=== PATIENT | male | born 1950 | race Caucasian/White ===

== ENCOUNTER 2020-09-30 11:06 | Inpatient (IN) | payer OTHER ==
[~2020-09-30] VITALS: Ht 177.8 cm; Wt 81.4 kg
[~2020-09-30 11:06] MED LIST: ATOR20 PO; ATOR40TA PO; Aspirin EC81 MG PO; LISINOPRIL-HCT1 EACH PO; METFORMIN HCL1000 M5 PO; NAPR500 PO; OXYACE5T PO
[2020-09-30 12:14] LABS: Mean Corpuscular HGB 26.8 pg (26.0-34.0); Mean Corpuscular HGB Conc 29.8 g/dL (31.5-36.5); Mean Corpuscular Volume 90 fL (80-100); Mean Platelet Volume 10.6 fL (9.1-12.4); NRBC ABSOLUTE 0.03 K/mm3 (0.00-0.02); NRBC Auto 0.7 /100 WBC (0.0-0.2); Platelet Count 981 K/mm3 (150-400); RDW Coefficient Variation 18.9 % (11.7-14.2); RDW Standard Deviation 59.3 fL (35.1-46.3); Red Blood Cell Count 1.79 M/mm3 (4.30-5.90); White Blood Cell Count 4.51 K/mm3 (4.00-11.30)
[2020-09-30 12:33] LABS: Alanine Aminotransfer (ALT/SGP 47 U/L (12-78); Albumin, Blood 2.7 g/dL (3.4-5.0); Albumin/Globulin Ratio 0.6 (0.8-1.8); Alk Phos 107 U/L (50-136); Anion Gap 9 mmol/L (6-16); Aspartate Aminotrans (AST/SGOT 35 U/L (12-37); Bilirubin, Total 0.3 mg/dL (0.1-1.0); Blood Urea Nitrogen 43 mg/dL (8-24); CO2, Blood 21 mmol/L (21-32); Calcium, Blood 8.7 mg/dL (8.5-10.1); Chloride, Blood 114 mmol/L (98-108); Creatinine, Blood 1.05 mg/dL (0.60-1.20); Globulin, Blood 4.7 g/dL (2.2-4.0); Glomerular Filtration Rate >60 (60-); Glucose, Blood 134 mg/dL (70-99); Hematocrit 16.1 % (37.0-53.0); Hemoglobin 4.8 g/dL (13.5-17.5); Potassium, Blood 4.3 mmol/L (3.5-5.5); Sodium, Blood 144 mmol/L (136-145); Total Protein, Blood 7.4 g/dL (6.4-8.2)
[2020-09-30 12:57] LABS: BAND PERCENT MAN 9 % (0-8); BASOPHILS ABSOLUTE MAN 0.09 K/mm3 (0.00-0.23); BASOPHILS PERCENT MAN 2 % (0-2); EOSINOPHILS PERCENT MAN 0 % (0-6); LYMPHOCYTES ABSOLUTE MAN 0.81 K/mm3 (0.84-5.20); METAMYELOCYTE ABSOLUTE MAN 0.45 K/mm3 (0.00-0.00); METAMYELOCYTE PERCENT MAN 10 % (0-0); MONOCYTES PERCENT MAN 0 % (4-13); MYELOCYTE ABSOLUTE MAN 0.09 K/mm3 (0.00-0.00); MYELOCYTE PERCENT MAN 2 % (0-0); NEUTROPHILS ABSOLUTE MAN 3.06 K/mm3 (1.96-9.15); SEG NEUTROPHILS PERCENT MAN 59 % (41-73); TOTAL CELLS COUNTED 100
[2020-09-30 12:58] LABS: LYMPHOCYTES PERCENT MAN 18 % (21-46)
[2020-09-30 14:01] LABS: IMMATURE RETIC FRACTION 21.9 % (2.3-16.0); RETICULOCYTE ABSOLUTE 0.0335 M/mm3 (0.0200-0.1100); RETICULOCYTE COUNT PERCENT 1.85 % (0.50-2.50)
[2020-09-30 14:23] LABS: Percent Saturation 37.7 % (20.0-50.0)
--- NOTE | 2020-09-30 15:54 | NUR ---
Telephone report from Malcolm Robles at this time. States that the pt will probably leave AMA. States pt's sister was here and that there was a "weird dynamic". States pt is saying that he really does not want to stay in the hospital. Noted 2 provider consultations in the orders, one for Dr. Lopez and another for Dr. Owusu. Jessica has evidently been contacted by the ordering provider, and Francoise consult states, "RN called and spoke with Dr. Owusu". Asked Malcolm to please clarify with RN who did the telephoning what the determinination with regard to that consultation. Anticipate pt arrival to PCU room 8 shortly.
--- NOTE | 2020-09-30 16:27 | NUR ---
Spoke with Dr Wills and Hopitalist Malcolm. Discussed case and concerns. Pt confused and critical low HGB. Possible undiagnosed form of dementia. Pt has history of leaving AMA and non compliance with medications. Concerns that Pt may leave AMA again. ED Portfolio Director Camelia also involved in case. Continued conversation regarding options and concerns. Called and spoke with Andres Bird from Ethics. Andres will consult with hospitalist Conrad. Palliative Care will F/U as needed.
--- NOTE | 2020-09-30 17:27 | NUR ---
MEDICATION LIST RECONCILLED WITH [facility], PT STATES THAT HE DOES TAKE MEFORMIN, ATORVASTATIN AND LISINOPRIL/HCTZ AT THE DOSAGES LISTED. PT STATES HE DOES NOT TAKE ASPIRIN. PT STATES HE DOES NOT TAKE ANY OTHER MEDICATIONS.
--- NOTE | 2020-09-30 17:48 | NUR ---
Pt arrived from the ED via stretcher. Alert, awake, and appropriate in conversation. Cooperative, calm, non anxious. Still wearing his clothes from home, which are soiled in urine and stool. Pt given a complete bed bath, linen change, and assessment completed. Vital signs are stable, and 1 unit of PRBCs is infusing at time of arrival.
[2020-09-30 18:21] LABS: Influenza A, PCR NEGATIVE (NEGATIVE); Influenza B, PCR NEGATIVE (NEGATIVE); Resp Syncytial Virus, PCR NEGATIVE (NEGATIVE); SARS-Cov-2 (COVID-19) PCR, MMC NEGATIVE (NEGATIVE)
--- NOTE | 2020-09-30 18:58 | NUR ---
Phone call from daughter in law Marisol Up, of pt's son Mike Up, expressing her concerns about the pt's living situation. She states that he has been evicted from his trailer and has no place to live. States that he has been on drugs in the past, and that he has some dementia also. She states that the son Mike found feces all over his bed, which was brown in color. Marisol states that she was the one who called APS due to his condition. States that she has been calling to set up the pt with medicaid but wasn't able to talk with anyone today. Her personal cell phone number is [phone], but she will be at work tomorrow. Explained to both her and son Mike the plan of care for the patient at this time, and that interdisciplinary effort is being made to plan for a safe discharge for the patient. Mike is listed as next of kin for the pt. Verified that [phone] is the best number to reach him at over the next 2 days.
[2020-09-30 22:19] LABS: Hematocrit 17.8 % (37.0-53.0); Hemoglobin 5.8 g/dL (13.5-17.5)
--- NOTE | 2020-10-01 05:52 | NUR ---
SHIFT SUMMARY PT ALERT TO SELF AND LOCATION. UNSURE OF REASON ADMITTED TO HOSPITAL AND YEAR. PT INGESTED BOWEL PREP PER PHYSICIAN ORDERS, SEE EMAR. PT HAD LIQUID BROWN STOOL. CONSULTED WITH CHARGE, RN AND RECTAL TUBE WAS PLACED D/T PT BEING INCONTINENT OF STOOL AND URINE. CONDOM CATH IN PLACE WELL. HR STABLE. BP STABLE. OXYGEN SATURATION MAINTAINED ABOVE 92% ON RA. PT REPORTS NO CP OR PRESSURE. PT ABLE TO TURN SELF IN BED NEEDED. PT HAD ONE EPISODE OF BLOODY NOSE DURING SHIFT, RESOLVED QUICKLY. PT PULLED IV DURING SHIFT. PT ON CAMERA IN ROOM. BED ALARM IN PLACE FOR SAFETY. WILL CONTINUE TO MONITOR UNTIL REPORT GIVEN TO DAYSHIFT RN.
[2020-10-01 06:46] LABS: Hematocrit 20.8 % (37.0-53.0); Hemoglobin 6.8 g/dL (13.5-17.5)
[2020-10-01 07:01] LABS: International Normalized Ratio 1.18; Prothrombin Time Results 12.5 Sec (9.7-11.5)
[2020-10-01 07:10] LABS: Alanine Aminotransfer (ALT/SGP 58 U/L (12-78); Albumin, Blood 2.4 g/dL (3.4-5.0); Albumin/Globulin Ratio 0.6 (0.8-1.8); Alk Phos 100 U/L (50-136); Anion Gap 7 mmol/L (6-16); Aspartate Aminotrans (AST/SGOT 46 U/L (12-37); Bilirubin, Total 0.6 mg/dL (0.1-1.0); Blood Urea Nitrogen 36 mg/dL (8-24); Bun/Creatinine Ratio 33.3 (12.0-20.0); CO2, Blood 22 mmol/L (21-32); Calcium, Blood 8.7 mg/dL (8.5-10.1); Chloride, Blood 114 mmol/L (98-108); Creatinine, Blood 1.08 mg/dL (0.60-1.20); Globulin, Blood 4.3 g/dL (2.2-4.0); Glomerular Filtration Rate >60 (60-); Glucose, Blood 101 mg/dL (70-99); Magnesium, Blood 2.2 mg/dL (1.6-2.4); Sodium, Blood 143 mmol/L (136-145); Total Protein, Blood 6.7 g/dL (6.4-8.2)
--- NOTE | 2020-10-01 07:34 | NUR ---
Calm, cooperative and opening eyes to conversation. Denies any pain, anxiety, discomfort, nervousness. No tremors noted. Skin warm, pink, dry. ORiented to person, place,but does not know the date nor the year. Asking to use the urinal. States he is in the hospital but does not know why. Vital signs are stable. Condom cath draining clear yellow urine to collection bag. will send urine for ordered tests. Rectal tube in place, draining brown liquid stool.
[2020-10-01 08:44] LABS: Source, Urine Clean Catch
[2020-10-01 08:50] LABS: Appearance, Urine Clear (Clear); Bilirubin, Urine Neg (Neg); Blood, Urine Neg (Neg); Color, Urine Yellow (P-Yellow); Glucose Qualitative, Urine Neg (Neg); Ketones, Urine Neg (Neg); Leukocyte Esterase, Urine Neg (Neg); Nitrite, Urine Neg (Neg); Protein, Urine 1+ (Neg); Specific Gravity, Urine 1.015 (1.003-1.022); Urobilinogen, Urine NORM (Normal)
[2020-10-01 08:59] LABS: U Amphetamine Screen DETECTED
[2020-10-01 09:00] LABS: U Barbituate Screen Not Detected; U Benzodiazapine Screen Not Detected; U Buprenorphine Screen Not Detected; U Cannabinoids Screen DETECTED; U Cocaine Screen Not Detected; U Methadone Screen Not Detected; U Methamphetamine Screen DETECTED; U Opiates Screen Not Detected; U Oxycodone Screen Not Detected; U Phencyclidine Screen Not Detected; U Propoxyphene Screen Not Detected
--- NOTE | 2020-10-01 09:01 | NUR ---
Call from Katie ashley confirming pt NPO status at this time. Informed RN that pt took bowel prep last night per report and completed it, at this time rectal tube is draining liquid brown stool. Urine draining via condom cath, clear yellow.
--- NOTE | 2020-10-01 09:11 | NUR ---
ORetic and lisinopril held due to SBP less than 110 this morning. PT coughing quite a lot after drinking water through a straw when attempting to take his pills. OT here to see the patient.
[2020-10-01 09:12] LABS: Stool Occult Blood Guaiac 1 Pos (Neg)
--- NOTE | 2020-10-01 09:23 | NUR ---
Ethics consult order received and processed. Medical chart notes reviewed, conversations facilitated with yoo stakeholders, and statutory material related to implied or presumed consent laws in cases of incapacitation evaluated. The principal is thought to be compromised neurocognitively and therefore unable to process medical information relevant to treatment, appreciate forseeable consenquences of a decision, or fully engage in the use of reason. In instances of emergency medicine, stabilizing therapies can be provided through the instrumentation of presumed consent in situations where the recipient of such services is incapacitated, as long as those treatments are not contraindicated by a known or accessible advance care planning device or legally enacted health care proxy. In the case of Mr Up, my recommendation is to have psychiatry conduct a cognitive examination to validate the assumption of incapacity for the record. If thoses findings confirm a lack of decisional capacity as clinically suspected, then with the permission of the family, we should retain the principal in the hospital as long as an acute level of service is needed. Additionally we should urge them to file a petition with the court and pursue emergency guardianship to ensure the terminal carman safety and well-being of the principal. Thank you for this consult. Andres Bird Th.D.
--- NOTE | 2020-10-01 10:03 | NUR ---
SET chair alarm off. Dr. Kennedy here to see the patient. Dr. Shane called, apraised of pt's u tox and CIWA score which was 3 due to pt's confusion. New orders received. PT assisted from chair to bed at his request at this time.
--- NOTE | 2020-10-01 11:01 | NUR ---
Pt resting in bed upon arrival. Pt denies pain and dyspnea at this time. Wet non productive cough noted. Pt appears more withdrawn today and only responds to questions with simple one to two word sentences. Reviewed chart and Palliative Care will remain available.
--- NOTE | 2020-10-01 12:35 | NUR ---
10/01/20 1235 Saad Sanders PATIENT DETERMINED TO BE ASA APPROPRIATE FOR PROPOFOL SEDATION PRIOR TO START OF PROCEDURE BY DR. JACOBSON Bite Block Placed 3-LEAD EKG REVIEWED WITH PHYSICIAN PRIOR TO START OF PROCEDURE. Patient to ENDO 2 History, Chart, Medications and Allergies reviewed before start of procedure. MONITOR INTACT WITH CONTINUOUS PULSE OXIMETRY AND INTERMITTENT BP. O2 VIA N/C INTACT THROUGHOUT SEDATION/PROCEDURE.
--- NOTE | 2020-10-01 13:31 | NUR ---
Advised by Saad ROSE that pt is returning to room from endoscopy.
--- NOTE | 2020-10-01 14:01 | NUR ---
Pt returned from endoscopy. Sat up on gurney, stated that he felt "blurry" an dizzy. Transferred to bed using lift sheet instead of having pt stand and transfer. Pericare done for scant soiling of rectal area, and linen changed. Boosted up in bed. Pt requesting food and drink. Per ROSE Nash,the pt can have regular diet which was approved by Dr. Lopez. Pt was provided with food and drink from [facility].
--- NOTE | 2020-10-01 14:56 | NUR ---
Call to Dr. Wilkinson to request update of orders. New order to D/C the protonix gtt and change to oral daily dosing. Regular diet also ordered. Dr. Wilkinson states that from gastrolenterology standpoint the pt can be discharged, but he understands that there are social issues which are being adressed first.
--- NOTE | 2020-10-01 14:58 | NUR ---
Yung tolerating regular diet, drinking diet pepsi and ate a half sandwich.
--- NOTE | 2020-10-01 15:36 | NUR ---
Spiritual care visit conducted. Patient is sitting up in bed and alert. Patient answers in very short sentences but is engaged in the conversation. Patient says "no" to understanding what his medical issues are and to knowing what his medical plan of care is. He also says "no" to having anyone who is supportive of him and to having any spiritual beliefs. Patient stated that he used to be inspired by hunting and fishing and the outdoors. Patient states that his world now is "small and lonely." I normalize patient's experience, and provide therapeutic listening and a calming presence. I will continue to attempt to build therapeutic alliance with patient in order to assist with the emotional/spiritual struggles in his life.
[2020-10-01 15:47] LABS: Hematocrit 23.6 % (37.0-53.0); Hemoglobin 7.7 g/dL (13.5-17.5)
--- NOTE | 2020-10-01 22:41 | NUR ---
PHYSICIAN UPDATED PHYSICIAN UPDATED AFTER SECOND COVID SWAB RESULTED NEGATIVE. ORDERED TO D/C ISOLATION.
[2020-10-02 02:17] LABS: Hematocrit 21.4 % (37.0-53.0); Hemoglobin 7.1 g/dL (13.5-17.5)
--- NOTE | 2020-10-02 05:40 | NUR ---
SHIFT SUMMARY PT SLEPT T/O SHIFT. PT ALERT TO SELF, KNOWS HE IS IN THE HOSPITAL, UNSURE OF YEAR OR WHY HE IS ADMITTED TO THE HOSPITAL. PT INCONTINENT OF URINE AND STOOL. DEPENDS IN PLACE. PT ABLE TO TURN SELF IN BED NEEDED. HR STABLE. BP STABLE. OXYGEN SATURATION ABOVE 92% ON RA. BED ALARM IN PLACE FOR PT SAFETY. NO CP REPORTED. WILL CONTINUE TO MONITOR UNTIL REPORT GIVEN TO DAYSHIFT RN.
[2020-10-02 12:51] LABS: Hematocrit 23.8 % (37.0-53.0); Hemoglobin 7.6 g/dL (13.5-17.5)
--- NOTE | 2020-10-02 17:09 | NUR ---
SHIFT SUMMARY NO ACUTE EVENTS THIS SHIFT, VSS. PATIENT WORKED WITH PT/OT THIS SHIFT, PATIENT TOLERATED WELL, ABLE TO AMBULATE TO BATHROOM AND BACK WITH THERAPY. PATIENT TOLERATED PO INTAKE WELL THIS SHIFT. DENIED PAIN AND NAUSEA/HEADACHE THIS SHIFT, CIWA SCORES 0-2.
--- NOTE | 2020-10-02 17:20 | NUR ---
REPORT GIVEN TO LUCY ROSE ON MEDICAL.
--- NOTE | 2020-10-02 17:39 | NUR ---
Son wanted to complete documents review of advance directives and discussed code status. He will review with his father and and we will complete on monday. Review of POA and assigned decision maker. The had many questions about his anemia and bleeding. Educated on medications and floow up care and what his GI system was doing. Encouraged him to go to GI doctor and oncology so he does not suffer and stays our of hospital. Pt starting to have more appetiete wanted some candy and was looking forward to dinner.
--- NOTE | 2020-10-02 19:22 | NUR ---
AT BASELINE, knew name and that he was in a hospital in [place] but not date or even the month, stated he was here because his brother brought him, denied pain during bsr with noc nurse, call light in reach and explained, demonstrated ability to turn on light, rm air, bed in low position, saline locked, noc nurse has taken responsibility for pt
[2020-10-03 05:03] LABS: Hematocrit 22.5 % (37.0-53.0); Hemoglobin 7.2 g/dL (13.5-17.5); Mean Corpuscular HGB 27.8 pg (26.0-34.0); Mean Corpuscular Volume 87 fL (80-100); Mean Platelet Volume 10.1 fL (9.1-12.4); Platelet Count 729 K/mm3 (150-400); RDW Coefficient Variation 16.4 % (11.7-14.2); RDW Standard Deviation 51.6 fL (35.1-46.3); Red Blood Cell Count 2.59 M/mm3 (4.30-5.90)
[2020-10-03 05:24] LABS: Alanine Aminotransfer (ALT/SGP 69 U/L (12-78); Albumin, Blood 2.1 g/dL (3.4-5.0); Albumin/Globulin Ratio 0.5 (0.8-1.8); Alk Phos 116 U/L (50-136); Anion Gap 8 mmol/L (6-16); Aspartate Aminotrans (AST/SGOT 53 U/L (12-37); Bilirubin, Total 0.3 mg/dL (0.1-1.0); Blood Urea Nitrogen 32 mg/dL (8-24); Bun/Creatinine Ratio 34.4 (12.0-20.0); CO2, Blood 21 mmol/L (21-32); Calcium, Blood 8.3 mg/dL (8.5-10.1); Chloride, Blood 112 mmol/L (98-108); Creatinine, Blood 0.93 mg/dL (0.60-1.20); Globulin, Blood 4.1 g/dL (2.2-4.0); Glomerular Filtration Rate >60 (60-); Glucose, Blood 98 mg/dL (70-99); Potassium, Blood 4.3 mmol/L (3.5-5.5); Sodium, Blood 141 mmol/L (136-145); Total Protein, Blood 6.2 g/dL (6.4-8.2)
[2020-10-03 05:35] LABS: BAND PERCENT MAN 10 % (0-8); BASOPHILS PERCENT MAN 0 % (0-2); EOSINOPHILS PERCENT MAN 0 % (0-6); LYMPHOCYTES ABSOLUTE MAN 0.54 K/mm3 (0.84-5.20); LYMPHOCYTES PERCENT MAN 15 % (21-46); METAMYELOCYTE ABSOLUTE MAN 0.32 K/mm3 (0.00-0.00); METAMYELOCYTE PERCENT MAN 9 % (0-0); MONOCYTES PERCENT MAN 0 % (4-13); MYELOCYTE ABSOLUTE MAN 0.14 K/mm3 (0.00-0.00); MYELOCYTE PERCENT MAN 4 % (0-0); NEUTROPHILS ABSOLUTE MAN 2.59 K/mm3 (1.96-9.15); SEG NEUTROPHILS PERCENT MAN 62 % (41-73); TOTAL CELLS COUNTED 100
--- NOTE | 2020-10-03 06:11 | NUR ---
SHIFT SUMMARY- PT. A&OX2 WITH CONFUSION. NO COMPLAINTS DURING THE NIGHT. ASLEEP MOST OF THE NIGHT, NO APPARENT DISTRESS NOTED. INCONT, ATTENDS IN PLACE. PT. REPOSITIONED FOR COMFORT AND PRN. EDNA ASKEW'Luis, VSS. CALL LIGHT WITHIN REACH, SIDE RAILS UPX2, AND BED ALARM ON FOR SAFETY. WILL CONT TO MONITOR.
--- NOTE | 2020-10-03 10:27 | NUR ---
CHANGED L WRIST IV DRESSING ON 10/03/20.
--- NOTE | 2020-10-03 18:42 | NUR ---
SHIFT SUMMARY PT A/O X2; ORIENTED TO PLACE AND TO HIMSELF. HE IS CONFUSED BUT VERY PLEASANT AND COOPERATIVE. HE GETS UP WITH A 1 PERSON ASSIST TO THE CHAIR AND IS UP IN THE CHAIR FOR MEALS. HE IS INCONT AND HAD MANY INCONT VOIDS DURING THE SHIFT. VSS; WILL REPORT TO GABRIEL RN.
--- NOTE | 2020-10-04 05:40 | NUR ---
SHIFT SUMMARY- PT. SLEPT MOST OF THE NIGHT, NO APPARENT DISTRESS NOTED. A&OX2, OTHERWISE PLEASANTLY CONFUSED. HAD FEVER LAST NIGHT, MEDICATED PER EMAR WITH GOOD EFFECT. NO C/O PAIN OR N/V. PT. HAVING SEVERAL INCONT VOIDS T/O THE NIGHT. ATTENDS IN PLACE. CALL LIGHT WITHIN REACH, SIDE RAILS UPX2, AND BED ALARM ON. WILL CONT TO MONITOR.
[2020-10-04 08:03] LABS: Hematocrit 21.9 % (37.0-53.0); Hemoglobin 6.9 g/dL (13.5-17.5); Mean Corpuscular HGB 27.6 pg (26.0-34.0); Mean Corpuscular HGB Conc 31.5 g/dL (31.5-36.5); Mean Corpuscular Volume 88 fL (80-100); Mean Platelet Volume 10.4 fL (9.1-12.4); NRBC ABSOLUTE 0.02 K/mm3 (0.00-0.02); NRBC Auto 0.6 /100 WBC (0.0-0.2); Platelet Count 455 K/mm3 (150-400); RDW Coefficient Variation 16.5 % (11.7-14.2); RDW Standard Deviation 52.6 fL (35.1-46.3); White Blood Cell Count 3.52 K/mm3 (4.00-11.30)
[2020-10-04 09:04] LABS: BAND PERCENT MAN 3 % (0-8); BASOPHILS ABSOLUTE MAN 0.03 K/mm3 (0.00-0.23); BASOPHILS PERCENT MAN 1 % (0-2); BLASTS PERCENT MAN 2 % (0-0); EOSINOPHILS PERCENT MAN 0 % (0-6); LYMPHOCYTES % ATYPICAL MANUAL 2 % (0-0); LYMPHOCYTES ABSOLUTE MAN 0.59 K/mm3 (0.84-5.20); LYMPHOCYTES PERCENT MAN 15 % (21-46); METAMYELOCYTE ABSOLUTE MAN 0.21 K/mm3 (0.00-0.00); METAMYELOCYTE PERCENT MAN 6 % (0-0); MONOCYTES PERCENT MAN 0 % (4-13); MYELOCYTE ABSOLUTE MAN 0.24 K/mm3 (0.00-0.00); MYELOCYTE PERCENT MAN 7 % (0-0); NEUTROPHILS ABSOLUTE MAN 2.35 K/mm3 (1.96-9.15); SEG NEUTROPHILS PERCENT MAN 64 % (41-73); TOTAL CELLS COUNTED 100
--- NOTE | 2020-10-04 18:18 | NUR ---
SHIFT SUMMARY PT AXO TO SELF AND FOLLOWING DIRECTIONS. CAN NAME CITY BUT COULD NOT RECALL YEAR. VSS THIS SHIFT. 1 UNIT PRBC ADMINITERED PER DR HILL'S ORDER. BEDBOUND, TURN Q2. ATTENDS CHANGED PRN AND AT LEAST Q2. PT DENIES PAIN, SOB AND N/V. BED IN LOW POSITION CALL LIGHT WITHIN REACH.
--- NOTE | 2020-10-05 04:45 | NUR ---
SHIFT SUMMARY PT A/O TO SELF AND HOSPITAL BUT DID NOT KNOW YEAR OR PRESIDENT. HE HAS RESTED IN BED MOST OF THE NIGHT AND HAS DENIED NEEDS. NO ACUTE CHANGES IN ASSESSMENT. HGB UP TO 6.9 AFTER LAST CHECK. PT RECEIVED 1 UNIT OF PRBC DURING DAYSHIFT REPEAT LABS TO BE DONE AGAIN THIS AM. BED IN LOWEST POSITION, CALL LIGHT WITHIN REACH.
[2020-10-05 06:20] LABS: Hematocrit 24.3 % (37.0-53.0); Hemoglobin 7.8 g/dL (13.5-17.5); Mean Corpuscular HGB 28.4 pg (26.0-34.0); Mean Corpuscular HGB Conc 32.1 g/dL (31.5-36.5); Mean Corpuscular Volume 88 fL (80-100); Mean Platelet Volume 11.1 fL (9.1-12.4); Platelet Count 567 K/mm3 (150-400); RDW Standard Deviation 50.9 fL (35.1-46.3); Red Blood Cell Count 2.75 M/mm3 (4.30-5.90)
[2020-10-05 06:37] LABS: Anion Gap 7 mmol/L (6-16); Blood Urea Nitrogen 28 mg/dL (8-24); Bun/Creatinine Ratio 34.6 (12.0-20.0); CO2, Blood 21 mmol/L (21-32); Calcium, Blood 8.5 mg/dL (8.5-10.1); Chloride, Blood 111 mmol/L (98-108); Creatinine, Blood 0.81 mg/dL (0.60-1.20); Glomerular Filtration Rate >60 (60-); Glucose, Blood 103 mg/dL (70-99); Potassium, Blood 4.5 mmol/L (3.5-5.5); Sodium, Blood 139 mmol/L (136-145)
[2020-10-05 06:51] LABS: BAND PERCENT MAN 5 % (0-8); BASOPHILS PERCENT MAN 0 % (0-2); BLASTS PERCENT MAN 1 % (0-0); EOSINOPHILS PERCENT MAN 0 % (0-6); LYMPHOCYTES ABSOLUTE MAN 0.84 K/mm3 (0.84-5.20); METAMYELOCYTE PERCENT MAN 10 % (0-0); MONOCYTES ABSOLUTE MAN 0.16 K/mm3 (0.16-1.47); MONOCYTES PERCENT MAN 4 % (4-13); MYELOCYTE ABSOLUTE MAN 0.16 K/mm3 (0.00-0.00); MYELOCYTE PERCENT MAN 4 % (0-0); SEG NEUTROPHILS PERCENT MAN 55 % (41-73); TOTAL CELLS COUNTED 100
[2020-10-05 06:59] LABS: LYMPHOCYTES PERCENT MAN 21 % (21-46)
--- NOTE | 2020-10-05 12:28 | NUR ---
Spiritual care visit conducted. Patient is sitting in a chair and alert. Patient tells me that he is doing fine and has no idea where he will go from once he will DC. I ask patient about his son and daughter and if he would go and stay with one of them for a little while and he tells me that he is not interested in this as an option. Dr. Banks comes in while we are talking, I leave and let them talk. As I chart outside patient's rm, I hear the discussion about a possible bone marrow cancer. I go in to patient's rm after their discussion to offer support and patient states that "it is time for this to come" and that he is "fine with it." I will continue to remain available to patient and family.
--- NOTE | 2020-10-05 19:29 | NUR ---
responded to questions correctly during bsr, stated he was going home tomorrow, call light in reach, saline locked, rm air, able to make needs known, family called multiple times, stated he has no home to return to and that they were working with the hospital to find safe placement for him
--- NOTE | 2020-10-07 04:36 | NUR ---
SHIFT SUMMARY PATIENT HAD NO ACUTE CHANGES OBSERVED. AXOX 2 AND ONE ASSIST FWW/GAIT TO BSC. PIV REMAINS INTACT. TAKES MEDICATION WHOLE WITH WATER. DENIES PAIN, SOB, AND N/V. VSS/AFEBRILE. SLEPT MOST OF SHIFT. CALL LIGHT IN REACH. BED IN LOWEST POSITION AND ALARM ACTIVATED. WILL CONTINUE TO MONITOR UNTIL DAY SHIFT NURSE ASSUMES CARE.
--- NOTE | 2020-10-07 12:34 | NUR ---
CALLED DR HILL- PT BG HAS NOT BEEN HIGHER THAN 120'S SINCE THE 10TH. RECIEVED ORDER TO DC SS INSULIN AND DC BG CHECKS.
--- NOTE | 2020-10-07 20:00 | NUR ---
SHIFT SUMMARY- PT HAS HAD NO ACUTE CHANGE T/O THE SHIFT. RECIEVED A CALL FROM DR MCKENNA. DR MCKENNA WILL BE IN TOMORROW AT AROUND 1200 TO DO A BONE MARROW BIOPSY FOR THIS PT. PASSED ON TO HOSPITALIST, ELECTRICAL PROSPECTING ENGINEER AND NIGHT RN IN REPORT. PT IN BED SLEEPING AT THE TIME OF SHIFT CHANGE BED ALARM ON FOR SAFETY. AWAITING PLACEMENT AT THIS TIME. PER DR VASQUEZ PLAN TO DO A CBC TOMORROW PT MAY NEED ANOTHER TRANSFUSION SOON, HE HAS NEEDED THEM REGULARLY.
--- NOTE | 2020-10-07 20:42 | NUR ---
TEMP 102.1 F. 650 TYLENOL TO BE GIVEN COVERS (EXCEPT SHEET) REMOVED. WILL RECHECK 30 MINUTES AFTER DOSE.
--- NOTE | 2020-10-08 05:32 | NUR ---
PATIENT HAD TEMP OF 102.7 EARLY IN SHIFT WHICH TOOK UNTIL ALMOST 2400 TO COME DOWN TO 99.0. MD WAS NOTIFIED AND REQUESTED BLOOD CULTURES WERE DRAWN. BILL IS VERY PALE INCLUDING HIS LIPS AND TONGUE. FLUTTER VALVE WAS BROUGHT IN AND PATIENT WAS COACHED ON USE AND PURPOSE. UPPER AIRWAYS WERE VERY LOOSE NON PRODUCTIVE COUGH. CBC TO BE DRAWN AT 0600 TO DETERMINE WHETHER OR NOT PATIENT TO RECEIVE ADDITIONAL PRBC TODAY. OF THIS MORNING, PLAN IS FOR DR. MCKENNA TO PERFORM A BONE BX AT NOON TODAY.. INCONTINENT OF URINE TWICE TONIGHT DESPITE ENCOURAGEMENT TO USE URINAL.
[2020-10-08 05:54] LABS: Hematocrit 24.6 % (37.0-53.0); Hemoglobin 7.7 g/dL (13.5-17.5); Mean Corpuscular HGB 28.2 pg (26.0-34.0); Mean Corpuscular HGB Conc 31.3 g/dL (31.5-36.5); Mean Corpuscular Volume 90 fL (80-100); Mean Platelet Volume 10.9 fL (9.1-12.4); Platelet Count 662 K/mm3 (150-400); RDW Coefficient Variation 16.4 % (11.7-14.2); RDW Standard Deviation 53.3 fL (35.1-46.3); Red Blood Cell Count 2.73 M/mm3 (4.30-5.90); White Blood Cell Count 3.99 K/mm3 (4.00-11.30)
[2020-10-08 07:41] LABS: BAND PERCENT MAN 5 % (0-8); BASOPHILS PERCENT MAN 0 % (0-2); EOSINOPHILS PERCENT MAN 0 % (0-6); LYMPHOCYTES % ATYPICAL MANUAL 1 % (0-0); LYMPHOCYTES ABSOLUTE MAN 1.07 K/mm3 (0.84-5.20); LYMPHOCYTES PERCENT MAN 26 % (21-46); METAMYELOCYTE ABSOLUTE MAN 0.23 K/mm3 (0.00-0.00); METAMYELOCYTE PERCENT MAN 6 % (0-0); MONOCYTES PERCENT MAN 0 % (4-13); MYELOCYTE ABSOLUTE MAN 0.35 K/mm3 (0.00-0.00); MYELOCYTE PERCENT MAN 9 % (0-0); NEUTROPHILS ABSOLUTE MAN 2.31 K/mm3 (1.96-9.15); SEG NEUTROPHILS PERCENT MAN 53 % (41-73); TOTAL CELLS COUNTED 100
[2020-10-08 13:39] LABS: Performing Lab LABCORP; Test Name BM BIOPSY
[2020-10-08 15:17] LABS: Performing Lab SYMBIODX; Test Name BONE MARROW
--- NOTE | 2020-10-08 17:12 | NUR ---
Spiritual care note: Asked to meet with pt and son to provide notary service to Advanced Directive. Pt was unable to see document to sign, but agreed he wanted to be DNR. POLST completed with son, Mike, signing on behalf of his dad. POLST awaiting physician signature.
--- NOTE | 2020-10-08 18:26 | NUR ---
SHIFT SUMMARY- PT IS ALERT, PLESANT AND COOPERATIVE. HE IS EATING AND DRINKING WELL THIS SHIFT. DR. MCKENNA CAME AND DID A BONE MARROW BIOPSY. PT TOLERATED WELL. PT WORKED WITH THE PT AND HE DID WELL. HE IS USING THE URINAL AND INC. HE SLEPT INTERMITENTLY DURING THIS SHIFT. FAMILY WAS AT BEDSIDE THIS AFTERNOON. HIS BED IS IN THE LOW POSITION AND CALL LIGHT IS WITHIN REACH.
--- NOTE | 2020-10-09 19:08 | NUR ---
a+orinetated to self and location, call light in reach, denied pain during bsr with noc nurse, states he does not wish to get out of bed, saline locked, rm air, no acute changes noted during shift, dr in to assess
--- NOTE | 2020-10-10 04:17 | NUR ---
DATA MANAGEMENT MANAGER SUMMARY PT A&O TO SELF. PT CONFUSED AND FORGETFUL AT TIMES, EASILY REDIRECTABLE. PLEASANT. NO C/O PAIN OR ANY DISCOMFORT THIS SHIFT. NO C/O CP, SOB, OR N&V. INTERMITTENT MOIST COUGH NOTED. RESP E/U IN RA. PT INCONTINENT B&B, CONDOM CATH IN PLACE. NO ACUTE CHANGES NOTED TO PATIENT THIS SHIFT. CALM AND RESTED IN BED. BED AT LOWEST POSITION W/ ALARM ON. CALL LIGHT WITHIN REACH.
--- NOTE | 2020-10-10 18:27 | NUR ---
SHIFT SUMMARY: NO ACUTE EVENTS. PATIENT UNCOOPERATIVE WITH CARE, REFUSED TO GET OOB TO CHAIR FOR MEALS. INCONTINENT OF B&B, WEARING CONDOM CATH. ADEQUATE PO INTAKE. DECLINED OFFERED BATH. HAD NO VISITORS.
--- NOTE | 2020-10-11 04:19 | NUR ---
INSPECTOR PENETRANT SUMMARY PT A&O TO SELF ONLY, PLEASANT AND COOPERATIVE WITH CARE. NO ACUTE CHANGES NOTED TO PATIENT THIS SHIFT. NO C/O PAIN OR ANY DISCOMFORT. NO C/O CP, SOB OR N&V. INCONTINENT OF B&B, ATTENDS IN PLACE. PT CALM AND RESTED IN BED T/O SHIFT. BED AT LOWEST POSITION. CALL LIGHT WITHIN REACH.
--- NOTE | 2020-10-11 18:30 | NUR ---
SHIFT SUMMARY: T MAX 101.2 THIS EVENING; SPOKE TO DR. ONTIVEROS, WILL TRY INCENTIVE SPIROMETER, NO OTHER INTERVENTIONS FOR NOW. HAS HAD REGULATORY AFFAIRS SPEC COUGH, O2 SAT 96% RA. DENIES PAIN. INCONT OF BLADDER, CONDOM CATH ON. IV SALINE LOCK D/C'D, ORDER FOR NO IV ACCESS. GETTING UP TO CHAIR FOR 2/3 MEALS, TAKES MUCH COAXING. REFUSED TO AMBULATE TODAY. NEW PRESSURE ULCER NOTED ON COCCYX; DRESSED WITH FOAM DRESSING, HAS GOOD BED MOBILITY AND TURNS SELF.
--- NOTE | 2020-10-12 04:46 | NUR ---
SUPERVISOR TURKEY FARM SUMMARY PT A&O TO SELF ONLY. CONFUSED AT TIMES. PLEASANT. MEDICATED FOR PAIN PER EMAR. NO C/O CP, SOB , OR N&V. PT CONT TO REFUSE USE OF INCENTIVE SPIROMETER. NO ACUTE CHANGES NOTED TO PT THIS SHIFT. BED AT LOWEST POSITION. CALL LIGHT WITHIN REACH.
[2020-10-12 05:35] LABS: Hematocrit 22.9 % (37.0-53.0); Hemoglobin 7.4 g/dL (13.5-17.5); Mean Corpuscular HGB 28.7 pg (26.0-34.0); Mean Corpuscular HGB Conc 32.3 g/dL (31.5-36.5); Mean Corpuscular Volume 89 fL (80-100); Mean Platelet Volume 10.7 fL (9.1-12.4); Platelet Count 721 K/mm3 (150-400); RDW Coefficient Variation 15.9 % (11.7-14.2); RDW Standard Deviation 51.2 fL (35.1-46.3); Red Blood Cell Count 2.58 M/mm3 (4.30-5.90); White Blood Cell Count 4.96 K/mm3 (4.00-11.30)
[2020-10-12 06:14] LABS: BAND PERCENT MAN 12 % (0-8); BASOPHILS PERCENT MAN 0 % (0-2); EOSINOPHILS PERCENT MAN 0 % (0-6); LYMPHOCYTES ABSOLUTE MAN 0.94 K/mm3 (0.84-5.20); LYMPHOCYTES PERCENT MAN 19 % (21-46); METAMYELOCYTE ABSOLUTE MAN 0.09 K/mm3 (0.00-0.00); METAMYELOCYTE PERCENT MAN 2 % (0-0); MONOCYTES ABSOLUTE MAN 0.14 K/mm3 (0.16-1.47); MONOCYTES PERCENT MAN 3 % (4-13); NEUTROPHILS ABSOLUTE MAN 3.76 K/mm3 (1.96-9.15); SEG NEUTROPHILS PERCENT MAN 64 % (41-73); TOTAL CELLS COUNTED 100
--- NOTE | 2020-10-12 07:23 | NUR ---
PATIENT HAS VIEW SCORE OF 4. ELEVATED RESPIRATION RATE OF 28, TEMP ON 101.5 MEDCIATED WITH APAP PER EMAR, PLACED ON 2L VIA NC, ELEVATED HOB. PATIENT DOES NOT APPEAR TO BE IN DISTRESS. BREATH SOUNDS ARE COARSE BILAT BASES, A CHANGE FROM LAST RESPIRATORY ASSESSMENT. NOTIFIED, SHE WILL COME TO ASSESS FURTHER. WILL CONT TO MONITOR.
--- NOTE | 2020-10-12 14:37 | NUR ---
CHANGE IN CONDITION OF THIS AFTERNOON, PATIENT IS NOW A DNR, PURPLE WRIST BAND TO LEFT WRIST. AT APPROX 1410 RECEIVED CALL FROM REHAB TECH STATING THAT PATIENTS RIGHT ARM BECAME FLACID. PATIENT WAS TRANSFERED BACK TO BED BY REHAB TECH AND DIRECT SALES PROFESSIONAL. CALL PLACED TO AND SHE CAME TO EVALUATE PATIENT. WITHIN 5 MIN PATIENT HAD SENSATION AND MOVEMENT ON THE RIGHT SIDE. NO NEW ORDERS AT THIS TIME. PATIENT HAS AN ELEVATED TEMP AND HE REFUSES APAP. WILL CONT TO MONITOR.
--- NOTE | 2020-10-12 16:28 | NUR ---
Reviewed chart and discussed case with Bedside ROSE Summers. Pt placed on comfort care this afternoon. Pt resting in bed upon arrival. Pt appears withdrawn with minimal verbal response to questions. Pt denies pain at this time. No S/S of distress at this time. Assisted Bedside ROSE Summers and CARRIE Iyer with repositioning as Kristopher offers Tylenol Sup for comfort. Called and spoke with Pt's son Yung Ray. Provided update and reviewed plan of care. Engaged in therapeutic listening as Yung reports after Pt's from cancer Pt discussed wanting to focus on comfort if ever developing cancer. Pt would not want to pursue any agressive treatments. Continued therapeutic listening and answered questions. Son expresses appreciation of conversation and reports no other concerns at this time. Instructed son to call Palliative Care with any questions or concerns. Palliative Care will remain available for symptom management and supportive visits.
--- NOTE | 2020-10-12 16:51 | NUR ---
SHIFT SUMMARY PATIENT IS NO ON COMFORT CARE. RECEIVED ORDER FOR APAP SUPPOSITORY, GIVEN FOR FEVER. SEE PREVIOUS NOTES LEADING UP TO FAMILY DECISION FOR COMFORT CARE. REVIEWED CASE AND CONDITION WITH PALLIATIVE CARE. PATIENT IS RESTING IN BED AND COMFORTABLE AT THIS TIME. BED LOW AND LOCED, CALL LIGHT WITHIN REACH. WILL CONT TO [facility] AND REPORT TO NEXT RN.
--- NOTE | 2020-10-13 05:43 | NUR ---
SUMMARY: PT ON COMFORT MEASURES AND SLEPT MAJORITY OF NOCTE. HE WAS ASSISTED W/REPOSITIONING BUT ALSO WAS OBSERVED TO HAVE GOOD BED MOBILITY. CONDOM CATH WAS APPLIED AND WAS EFFECTIVE UNTIL PT REMOVED IT. HE WAS THEN CHANGED PRN FOR URINARY INCONTINENCE. PO MEDS HELD THIS SHIFT D/T PT REFUSAL BUT HE IS ALSO ON COMFORT CARE. HE DENIED PAIN, NAUSEA AND ALL OTHER COMPLAINTS. ORAL TEMP DID IMPROVE FOLLOWING TYLENOL RECIEVED ON DAY SHIFT. NO ACUTE CHANGES. PLACEMENT PENDING. WCTM AND REPORT TO DAY RN.
--- NOTE | 2020-10-13 12:38 | NUR ---
Comfort Care Visit Pt resting in bed upon arrival. Pt appears withdrawn and answers questions with 1 to 2 word responses. Pt denies pain at this time. Encourage Pt to discuss concerns with Pt denying concerns at this time. Offered therapeutic voice. Palliative Care will remain available.
--- NOTE | 2020-10-13 17:58 | NUR ---
SHIFT SUMMARY SISTER IN ROOM THIS AFTERNOON FOR A VISIT. PT WAS SAYING HE NEEDED TO GO DOWNTOWN ABOUT THE END OF SISTERS VISIT. WAS EASILY REDIRECTED TO BED. INCONTINENT OF URINE AND STOOL. SLEEPING ON AND OFF MOST OF THE DAY. COUGHING ON ANY LIQUIDS DRANK. OFFERED THICKENED LIQUIDS AND PT AGREEABLE.
--- NOTE | 2020-10-13 20:49 | NUR ---
PT ON COMFORT CARE AND REFUSED HS MEDS STATING "NO THANKS, I'M GOOD".
--- NOTE | 2020-10-14 05:32 | NUR ---
SUMMARY: PT REMAINS ON COMFORT CARE AND DENIES PAIN/COMPLAINTS. HE CONT'S TO REFUSE MAJORITY OF MEDS BUT IS PLEASANT AND COOPERATIVE OTHERWISE. HE'S SLEPT MOST OF NOCTE AND REPOSITIONS SELF IN BED. CONDOM CATH IS IN PLACE AND PT TOLERATED IT MOST OF SHIFT BUT DID DISCONNECT TUBING FROM CATH LEADING TO SATURATED LINENS. ATTENDS AND LINEN CHANGED PRN FOR INCONTINENCE OF BOWEL AND BLADDER. NO ACUTE CHANGES. PLACEMENT PENDING. WCTM AND REPORT TO DAY RN.
--- NOTE | 2020-10-14 16:27 | NUR ---
Pt resting in bed upon arrival. Pt drinking coffee and is spilling some down his side onto linen. Discussed plan for this RN to assist with linen change with Pt refusing to allow this RN to provide care. Pt denies pain at this time. Pt appears comfortable with no S/S of distress at this time. Spoke with SPRING COILER and reported Pt's need for gown and linen change. Palliative Care will remain available.
--- NOTE | 2020-10-14 18:11 | NUR ---
SHIFT SUMMARY PT HAS BEEN SLEEPING MOST OF DAY. REPOSITIONS EASILY. NO S/S OR DENIES PAIN. NO CHANGE THROUGH SHIFT.
--- NOTE | 2020-10-15 11:31 | NUR ---
Met with pt for a visit. He was lying in bed upon arrival; ROSE Allen states he was unwilling to get up for breakfast and refused a bed bath this am. He is more agreeable now, states he's "getting hungry". He allowed this RN to give a partial bed bath and assist him with dressing. He was able to stand and transfer with 1 person assist into chair and began eating his breakfast. ROSE Campos also present for this visit. He reminded pt to slow down while eating, as he began to cough in between bites. He did not appear to be in any distress, with no s/s of pain at this time. Pressure alarm in place in chair, and ROSE Allen aware that pt is up in chair.
--- NOTE | 2020-10-15 11:39 | NUR ---
Joint visit with this RN and Palliative Care RN Giovana. Pt resting in bed upon arrival. Pt agreeable to sit in chair. Please see Palliative Care RN Giovana's note. Palliative Care will remain available.
--- NOTE | 2020-10-15 18:01 | NUR ---
SHIFT SUMMARY PT MORE ACTIVE TODAY THAN LAST TWO DAYS. SON AT BEDSIDE TO SEE HIM. WAS UP IN CHAIR FOR PERIOD AFTER BREAKFAST AND THEN AGAIN AT LUNCHTIME. HAS BEEN ASKED SEVERAL TIMES IF HE HAS ANY PAIN OR FEELING RESTLESS OR ANXIOUS. KEPT DENYING WHEN ASKED. AFTER USING THE BSC FOR A MEDIUM HALF FORMED STOOL PT ASSISTED TO BED AND FELL ASLEEP. VOICE SEEMS STRONGER TODAY WELL.
--- NOTE | 2020-10-16 18:36 | NUR ---
PT IS RESTING IN BED MAKING NO COMPLAINTS AT THIS MOMENT. STAFF WILL CONTINUE TO MONITOR FOR NEEDS AND COMFORT.
--- NOTE | 2020-10-16 22:08 | NUR ---
ASSUMPTION OF CARE. TANIA IS ALERT, SOME CONFUSION. CONTINUES TO DEROBE DOWN TO NOTHING. URINATES ALL OVER THE BED, HE WILL NOT WEAR A ATTENDS, CONDOM CATH. DENIES ANY PAIN OR DISCOMFORT. HE TOOK OFF DRESSING TO COCCYX WOUND. REFUSED TO HAVE ANOTHER ONE ON. ABLE TO TURN SELF IN BED. WILL CONTINUE TO MONITOR.
--- NOTE | 2020-10-17 00:03 | NUR ---
NO SIGNS OF DISTRESS, PARTS CLASSIFIER ACTUALLY GOT HIM BACK IN A GOWN AND ATTENDS. WILL SEE HOW LONG THIS LAST. NO PAIN NOTED.
--- NOTE | 2020-10-17 05:22 | NUR ---
SHIFT SUMMARY: TANIA HAS BEEN PLEASANTLY CONFUSED IN HIS ROOM, DENYING ANY PAIN OR DISCOMFORT THIS SHIFT. LOVES TO DE-YAMILE AND URINATE ALL OVER THE BED, WILL NOT USE ATTENDS OR URINAL. IS ABLE TO TURN SELF WITH NO PROBLEMS. SLEPT OFF AND ON. NO CONCERNS TO NOTE THIS SHIFT. CALL LIGHT IS IN REACH, BED ALARM IS ON.
--- NOTE | 2020-10-17 17:34 | NUR ---
SHIFT SUMMARY PATIENT DENIES PAIN, NAUSEA, AND SHORTNESS OF BREATH. PATIENT ORIENTED TO SELF AND SOMETIMES ANSWERS QUESTIONS APPROPRIATELY. FREQUENTLY DISROBES. BED ALARM ON. NAPPING DURING SHIFT BETWEEN MEALS.
--- NOTE | 2020-10-18 06:30 | NUR ---
SHIFT SUMMARY PT IS A 70 Y/O MALE, ADMITTED FOR AN UPPER GI BLEED AND CURRENTLY ON COMFORT CARE. HE IS A&O X SELF, BEDREST, INCONTINENT. PT REFUSES TO KEEP ON CLOTHES OR ATTENDS, FREQUENTLY RIPS THEM OFF. NO C/O PAIN, NAUSEA OR SOB. PT SLEPT WELL THROUGH THE NIGHT. NO ACUTE CHANGES IN PT CONDITION NOTED. WILL CONTINUE TO MONITOR AND TREAT PER EMAR UNTIL HAND OFF TO DAY SHIFT RN.
--- NOTE | 2020-10-18 16:36 | NUR ---
SHIFT SUMMARY PATIENT MEDICATED X1 FOR PAIN AND X1 FOR ANXIETY. DENIES NAUSEA AND SHORTNESS OF BREATH. PATIENT SLEEPING MOST OF AFTERNOON, REPORTS HE IS FEELING MORE RELAXED. PATIENT HAS NOT DISROBED OR REMOVED BRIEF THIS SHIFT.
--- NOTE | 2020-10-19 05:56 | NUR ---
SHIFT SUMMARY PT IS A 70 Y/O MALE, ADMITTED FOR AN UPPER GI BLEED AND CURRENTLY COMFORT CARE. HE IS A&O X SELF, BEDREST, INCONTINENT. HE WAS MEDICATED ONCE FOR CHRONIC PAIN WITH PRN ROXANOL. NO C/O NAUSEA OR SOB. NO ACUTE CHANGES IN PT CONDITION NOTED. WILL CONTINUE TO MONITOR AND TREAT PER EMAR UNTIL HAND OFF TO DAY SHIFT RN.
--- NOTE | 2020-10-19 09:47 | NUR ---
CC ASSESSMENT: PT IN NO APPARENT DISTRESS / NO C/O PAIN. NO DYSPNEA/SOB/SECRETIONS. NO FAMILY PRESENT. WCTM.
--- NOTE | 2020-10-19 10:45 | NUR ---
Comfort Care Visit Pt resting in bed upon arrival. Pt requesting a drink of coffee. Coffee cup on ground and is spilled. director student union Svaannah cleans coffe up. This RN provided new cup of coffee and assisted Pt with drinking it. Pt deneis pain and dyspnea at this time. Pt appears comfortable with no S/S of distress at this time. Spoke with Bedside RN Lencho. Lencho reports no concerns at this time. Palliative Care will remain available.
--- NOTE | 2020-10-19 12:06 | NUR ---
CC ASSESSMENT: MEDICATED FOR PAIN PER EMAR. NO DYSPNEA/SOB/SECRETIONS. NO FAMILY PRESENT. WCTM.
--- NOTE | 2020-10-19 12:07 | NUR ---
CC ASSESSMENT: NO C/O PAIN. NO DYSPNEA/SOB/SECRETIONS. NO FAMILY PRESENT. WCTM.
--- NOTE | 2020-10-19 14:50 | NUR ---
CC ASSESSMENT: PT IN NO APPARENT DISTRESS. NO DYSPNEA/SOB/SECRETIONS. FAMILY IN ROOM. WCTM.
--- NOTE | 2020-10-19 19:10 | NUR ---
RESTING QUIETLY. CALL LIGHT IN REACH
--- NOTE | 2020-10-19 19:24 | NUR ---
CC ASSESSMENT: PT IN NO APPARENT DISTRESS/NO C/O PAIN. NO DYSPNEA/SOB/SECRETIONS. NO FAMILY PRESENT. WCTM.
--- NOTE | 2020-10-19 19:26 | NUR ---
CC ASSESSMENT: MEDICATED FOR PAIN PER EMAR. NO DYSPNEA/SOB/SECRETIONS. NO FAMILY PRESENT. WCTM.
--- NOTE | 2020-10-19 19:39 | NUR ---
SHIFT SUMMARY: NO ACUTE CHANGES TO REPORT THIS SHIFT. PT A&O TO SELF AND FAMILY. MEDICATED FOR PAIN PER EMAR. CC MEASURES CONTINUING. AWAITING PLACEMENT. REPORT GIVEN TO ONCOMING RN.
--- NOTE | 2020-10-19 23:13 | NUR ---
Comfort care continues. Has been resting quietly without calling out since shift commence. Repositioned for comfort at intervals. Call light in reach
--- NOTE | 2020-10-19 23:41 | NUR ---
RESTING QUIETLY. REPOSITINED PER PT COMFORT. CALL LIGHT IN REACH
--- NOTE | 2020-10-19 23:42 | NUR ---
RESTING QUIETLY. CALL LIGHT IN REACH
--- NOTE | 2020-10-20 00:22 | NUR ---
REPOSITIONED, CHANGED, PERICARE FOR INCONT OF URINE. DRESSING OF COCCYX CHANGED
--- NOTE | 2020-10-20 02:27 | NUR ---
RESTING QUIETLY. NO NOTED S/S DISTRESS. CALL LIGHT IN REACH
--- NOTE | 2020-10-20 03:49 | NUR ---
REPOSITIONED, CHANGED LINEN AND ATTENDS. DRESSING OF COCCYX CHANGED DUE TO SLIGHT SECRETIONS
--- NOTE | 2020-10-20 04:43 | NUR ---
SHIFT SUMMARY Remains on comfort care. Rounding and repositoining continues. Linen changed and pt cleaned a few times for incontinence. Rails up x 3. Call light in reach. Pt voiceed feeling ok when asked.
--- NOTE | 2020-10-20 05:57 | NUR ---
RESTING QUIETLY. CALL LIGHT IN REACH
--- NOTE | 2020-10-20 13:03 | NUR ---
Pt resting in bed with his eyes closed upon arrival. Pt appears comfortable with no S/S of distress at this time. Palliative Care will remain available.
--- NOTE | 2020-10-20 13:45 | NUR ---
PER DR.SAIGAL GTZ TO TAKE STITCHES OUT OF LEFT EAR.
--- NOTE | 2020-10-20 16:42 | NUR ---
UPDATED DIL ON PATIENT CONDITION.
--- NOTE | 2020-10-20 18:50 | NUR ---
PATIENT NOT VERBAL TODAY, BUT DOES RESPOND TO COMMANDS. ASSISTS IN ROLLING WHEN CHANGING BRIEFS. HAS DENIED PAIN. 3 STITCHES TAKEN OUT OF LEFT EAR LOBE WITH PATIENT TOLERATING WELL. SATURATES BRIEFS WHEN HE DOES URINATE. WCTM
--- NOTE | 2020-10-20 21:25 | NUR ---
RESETING QUIETLY. CALL LIGHT IN REACH
--- NOTE | 2020-10-20 22:57 | NUR ---
REPOSITIONED. FLUIDS GIVEN. WARM BLANKETS APPLIED. CALL LIGHT IN [place]. RAILS UP X 3
--- NOTE | 2020-10-20 22:58 | NUR ---
RESTING QUIETLY. CALL LIGHT IN REACH
--- NOTE | 2020-10-20 22:59 | NUR ---
REPOSITIONED. CALL LIGHT IN REACH.
--- NOTE | 2020-10-21 00:48 | NUR ---
REPOSITIONED, CHANGED DUE TO INCONT. DRESSING OF COCCYX CHANGED. WOUND APPROX 3CM X 3CM WITH SOMEWHAT OVAL SHAPE. CALL LIGHT IN REACH
--- NOTE | 2020-10-21 02:49 | NUR ---
NOTE SOME MOVEMENT IN BED, ADJUSTING SELF IN POSITION. NO NOTED ACUTE DISTRESS. CALL LIGHT IN REACH. RAILS UP X 3
--- NOTE | 2020-10-21 04:13 | NUR ---
SHIFT SUMMARY PT CONTINUES ON COMFORT CARE. HAS RECEIVED ANALGESIC X 1 OF THIS WRITING FOR S/S PAIN. MED EFFECTIVE, HAS BEEN RESTING FAIRLY QUIETLY SINCE THEN. CALL LIGHT IN REACH. REPOSITIONED AND CHANGED FOR INCONT AND COMFORT. DRESSING WAS CHANGED X 1 ON COCCYX FOR SLIGHT DRAINAGE.
--- NOTE | 2020-10-21 09:37 | NUR ---
PATIENT RESTING COMFORTABLY. COSTUME DRAPER IN TO CHANGE AND REPOSITION PATIENT. DRESSING CHANGED TO COCCYX WOUND. PATIENT DENIES ANY NEEDS AT THIS TIME. NO S/S OF PAIN OR DISCOMFORT.
--- NOTE | 2020-10-21 09:38 | NUR ---
PATIENT SLEEPING AT THIS TIME. CALL LIGHT WITHIN REACH, BED ALARM SET FOR SAFETY.
--- NOTE | 2020-10-21 09:48 | NUR ---
Comfort Care Visit Pt resting in bed with his eyes closed. Pt appears comfortable with no S/S of distress at this time. Spoke with Bedside RN Maddison and discussed case. Maddison reports no other concerns at this time. Palliative Care will remain available.
--- NOTE | 2020-10-21 14:58 | NUR ---
PATIENT DENIES ANY NEEDS AT THIS TIME. NO S/S OF PAIN OR DISCOMFORT.
--- NOTE | 2020-10-21 17:34 | NUR ---
PATIENT REPOSITIONED AND MEDICATED WITH ROXINOL FOR S/S OF PAIN AND AIR HUNGER. DRESSING TO COCCYC WOUND CHANGED SEVERAL TIMES THIS SHIFT AND PATIENT CONTINUES TO REMOVE IT. AT THIS TIME THE WOUND IS OPEN TO AIR. KATRIN KEEP CLEAN AND CONTINUE TO REPOSITION FOR COMFORT.
--- NOTE | 2020-10-22 06:05 | NUR ---
SHIFT SUMMARY- PT. ON COMFORT CARE, AWAKE BUT NOT RESPONSIVE TO QUESTIONS OR COMMANDS. MEDICATED FOR PAIN SEVERAL TIMES DURING THE NIGHT, APPEARED TO HAVE GOOD RELIEF. SLEPT ON/OFF LAST NIGHT. REPOSITIONED FOR COMFORT AND PRN. CALL LIGHT WITHIN REACH AND BED ALARM ON FOR SAFETY. WILL CONT TO MONITOR.
--- NOTE | 2020-10-22 09:51 | NUR ---
Met with pt and his son who is sitting at the bedside. Pt appears slightly agitated upon my arrival, but his son states he was just given a dose of roxanol prior to my arrival. Student nurse Janet placed another blanket over pt's lower half to cover his feet. Pt's tongue appears dry. Offered him a moistened mouth swab, and he did suck on the swab without choking. Left more swabs with a cup of water and showed his son how to use the mouth swabs for moistening pt's mouth. Son was tearful, but states he does know time is short. He states there is nothing he needs at this time. Noted within the first 2 minutes of the visit, the pt began to appear more relaxed, his breathing now even and unlabored, and no grimace noted. Spoke to ROSE Washburn. She reports the current frequency of roxanol 10mg every 2 hours prn isn't quite enough to manage pt's symptoms, so she will try giving lorazepam prn along with roxanol as this may improve pt's comfort. Will check in with ROSE Washburn and pt in about an hour. Pt's son states he will be leaving shortly, and requested a call when pt expires.
--- NOTE | 2020-10-22 10:03 | NUR ---
REPORT AT BEDSIDE. PATIENT SLEEPING AT THIS TIME. NO S/S OFPAI OR DISCOMFORT. FALL PRECAUTIONS IN PLACE.
--- NOTE | 2020-10-22 10:07 | NUR ---
SON BILL AT BEDSIDE. MEDICATED FOR PAIN WITH ROXINOL. ORAL CARE COMPLETE. SON DENIES ANY NEEDS AT THIS TIME. BRIEF REMAINS DRY.
--- NOTE | 2020-10-22 12:54 | NUR ---
Spiritual care visit conducted. Patient is not very verbal so I explore with patient sources of meaning and purpose, provide water by putting water soaked sponges in his mouth and on his lips and provide prayer. I mostly provide a calming presence to which the patient is able to lie back and close his eyes and rest. I will continue to spend time with patient as my scheduale allows.
--- NOTE | 2020-10-22 13:51 | NUR ---
Palliative visit to patient at 1315. Noted his breathing labored at 36 resp/minute. He is also picking at his blankets and pillows and moaning occasionally. Pt had roxanol and lorazepam at 1230. Place call to Dr. Kennedy, updated him on pt's symptoms, received verbal order for increase in roxanol and lorazepam. Orders placed and ROSE Washburn will administer increased dose of roxanol, along with lorazepam if still needed.
--- NOTE | 2020-10-22 13:57 | NUR ---
MEDICATED WITH ATIVAN AND ROXINOL. REPOSITONED AND ORAL CARE COMPLETED.
--- NOTE | 2020-10-22 13:58 | NUR ---
ROXINOL AND ATIVAN DOSAGES AND FREQUENCY INCREASED PER MD ORDER. WILL CONTINUE TO ASSESS.
--- NOTE | 2020-10-22 15:03 | NUR ---
Made visit to pt's room, Chaplain Beckham at bedside, playing his guitar. Pt continues to have shallow, faster respirations, but is able to say "No" when asked if he is in pain, and when asked if he is SOB, or feeling anxious. He answered no to each individually. Moistened mouthswab offered, pt accepted. Mouth moistened. Fan to bedside table for pt comfort.
--- NOTE | 2020-10-22 15:31 | NUR ---
Spiritual care visit conducted. Patient is lying in bed and somewhat restless at times. I provide 45min of music therapy, playing soft classical finger picking style. Patient rests deeply at times but is easily disturbed by the noise in the hallway and those coming in and out of the rm. I also speak quietly before I leave encouraging patient in the work he is doing and wishing peace, light and love to fill his thoughts. I will continue to remain available to patient and family.
--- NOTE | 2020-10-22 18:21 | NUR ---
PATIENT RESTING COMFORTABLY AT THIS TIME. ORAL CARE COMPLETED AND PATIENT REPOSITIONED. FALL PRECAUTIONS IN PLACE.
--- NOTE | 2020-10-23 05:03 | NUR ---
PATIENT APPEARED TO SLEEP MOST OF NIGHT. ROSE WAS MEDICATED WITIH ROXYNOL 4 TIMES FOR PAIN AND AIR HUNGER. nO ANXIETY NOTED OVERNIGHT. HE MADE NO URINE. OPEN AREA ON COCCYX WAS CLEANSED AND COVERED WITH FOAM TO PREVENT PAINFUL SHEARING OVER WOUND. SON ROSE WILL BE IN THIS MORNING
--- NOTE | 2020-10-23 14:10 | NUR ---
Made a visit to pt's room today. He continues to lie in bed, appears frail, with new weight loss. No indication of pain present at this time. This pt appears to be imminent. He is no longer eating or drinking, and is minimally responsive; requiring assistance even with minimal repositioning. He is currently receiving roxanol prn for pain/air hunger along with lorazepam prn for anxiety.
--- NOTE | 2020-10-23 18:48 | NUR ---
at baseline, slept most of the shift communicated with family, but minimal communication with staff, medicated when pain was indicated by agitation or sob, family and staff were asked to inform rn if they felt he might be in pain but no one did, also asked pt but he consistantly indicated did not want medication, turned down all pills, shared bsr with noc nurse, rm air, no iv access, bed in low position and alarm on
--- NOTE | 2020-10-23 19:56 | NUR ---
BROTHER VISITING AT BEDSIDE AT THIS TIME.
--- NOTE | 2020-10-24 00:23 | NUR ---
PT EXPERIENCING AIR HUNGER. SEE EMAR. WARM TO TOUCH. BEDSIDE FAN PROVIDED, BLANKETS TAKEN OFF WITH THIN SHEET ON.
--- NOTE | 2020-10-24 07:09 | NUR ---
CLEANER CARPET AND UPHOLSTERY SUMMARY PT HAS BEEN NON-VERBAL TONIGHT. PT WAS NOT ABLE TO SHAKE OR NOD HEAD FOR NURSE EITHER. HAD A COUPLES OF EPISODES OF AIR HUNGER WHICH WERE MEDICATED WITH ROXANOL PER EMAR. PT WAS NOT ALERT ENOUGH TO DRINK ANY FLUIDS. NO URINE OUTPUT TONIGHT. BLADDERED SCANNER AROUND 0630 WITH O ML IN BLADDER. CURRENTLY RESTING IN BED AND APEARS COMFORTABLE. COMFORT CARE MEASURES GIVEN THROUGHOUT THE NIGHT. BED ALARM ON, CALL LIGHT WITHIN REACH. REPORT GIVEN TO ONCOMING RN.
--- NOTE | 2020-10-24 09:19 | NUR ---
RAPID ROUGH BREATHING - ROXANAL
--- NOTE | 2020-10-24 12:21 | NUR ---
ROXINAL FOR AIR HUNGER
--- NOTE | 2020-10-24 18:22 | NUR ---
sleepy on comfort care family in for most of the shift, medicated for air hunger and family comfort, oral care, will provide bsr to noc nurse and family
--- NOTE | 2020-10-24 20:14 | NUR ---
PATIENT MEDICATED PER EMAR FOR PAIN. HIS SON REPORTED THAT HE WAS MOANING OCCASIONALLY. THIS NURSE ALSO WITNESSED. BREATHING IS UNLABORED.
--- NOTE | 2020-10-24 22:34 | NUR ---
PATIENT DOES NOT APPEAR TO BE IN PAIN. BREATHING IS NOT LABORED, BUT PATIENT IS HAVING SOME PERIODS OF APNEA LASTING ABOUT 20 SECONDS.
--- NOTE | 2020-10-25 01:05 | NUR ---
PATIENT AT 0102.
--- NOTE | 2020-10-25 01:10 | NUR ---
INFORMED PATIENT'S SON, TANIA ATKINSON, OF HIS PASSING. HE INDICATED THAT [facility] WILL BE THE HOME TO CONTACT.
--- NOTE | 2020-10-25 01:44 | NUR ---
DR STEPHENSON NOTIFIED OF PATIENT'S . PATIENT'S SON CURRENTLY AT BEDSIDE.
--- NOTE | 2020-10-25 04:07 | NUR ---
PATIENT REMOVED FROM ROOM 335 AT 0406 BY CORDELL CASTRO FROM [facility].
[2020-11-12 15:15] LABS: Result SEE SEPERATE REPORT
== END 2020-10-25 01:02 | DRG 840 ==
LOC: ER 11:06 → MEDS 13:45 → PCU 13:45 → MEDS 10-02 17:51 → ENPENDDIS 10-05 10:43 → MEDS 10-25 01:02
PROVIDERS: Emergency Medicine; Family Medicine; Hospitalist; Internal Medicine Gastroenterology; Internal Medicine Hematology & Oncology; Nurse Practitioner Acute Care; ADMIT Internal Medicine
PROC: 07DR3ZX Extraction of Iliac Bone Marrow, Percutaneous Approach, Diagnostic (ICD-10-PCS; principal; 2020-09-30)
PROC: 0DBL8ZZ Excision of Transverse Colon, Via Natural or Artificial Opening Endoscopic (ICD-10-PCS; 2020-10-01)
PROC: 0DBP8ZZ Excision of Rectum, Via Natural or Artificial Opening Endoscopic (ICD-10-PCS; 2020-10-01)
PROC: 0DB68ZX Excision of Stomach, Via Natural or Artificial Opening Endoscopic, Diagnostic (ICD-10-PCS; 2020-10-01 12:30)
PROC: 30233N1 Transfusion of Nonautologous Red Blood Cells into Peripheral Vein, Percutaneous Approach (ICD-10-PCS; 2020-10-08)
DX: D47.1 Chronic myeloproliferative disease (principal); G92 Toxic encephalopathy; E46 Unspecified protein-calorie malnutrition; K22.10 Ulcer of esophagus without bleeding; K92.2 Gastrointestinal hemorrhage, unspecified; Z66 Do not resuscitate; Z51.5 Encounter for palliative care; Z20.822 Contact with and (suspected) exposure to COVID-19; M62.81 Muscle weakness (generalized); R50.9 Fever, unspecified; K57.30 Diverticulosis of large intestine without perforation or abscess without bleeding; K63.5 Polyp of colon; R05 Cough; R71.8 Other abnormality of red blood cells; F10.10 Alcohol abuse, uncomplicated; Z68.27 Body mass index [BMI] 27.0-27.9, adult; E11.9 Type 2 diabetes mellitus without complications; I10 Essential (primary) hypertension; D47.3 Essential (hemorrhagic) thrombocythemia; F19.10 Other psychoactive substance abuse, uncomplicated; E78.5 Hyperlipidemia, unspecified; F17.210 Nicotine dependence, cigarettes, uncomplicated; Z59.0 Homelessness; Z79.84 Long term (current) use of oral hypoglycemic drugs; Z71.41 Alcohol abuse counseling and surveillance of alcoholic; Z79.899 Other long term (current) drug therapy; Z79.82 Long term (current) use of aspirin; Z98.890 Other specified postprocedural states
CPT/HCPCS: 0241U; 36415; 36430; 71045; 80048; 80053; 82272; 82607; 82728; 82746; 82947; 83540; 83550; 83735; 85007; 85014; 85018; 85025; 85027; 85045; 85060; 85610; 86850; 86900; 86901; 86923; 87040; 88237; 88264; 88305; 88311; 88313; 88341; 88342; 88360; 96365-59; 96366-59; 97110; 97116; 97129; 97162; 97166; 97530; 97535; 99284-25; A9270; C9113; G0480; J2250; J2704; J7030; J7040; J7120; P9016